=== PATIENT | female | born 2000 | race Caucasian/White ===

== ENCOUNTER 2018-11-03 13:59 | Emergency (ER) | payer OTHER ==
[~2018-11-03] VITALS: Ht 170.2 cm; Wt 96.2 kg
[2018-11-03 14:03] VITALS: Ht 170.2 cm; Wt 96.2 kg
[2018-11-03 15:45] VITALS: BP 134/69
== END 2018-11-03 15:46 | disposition home or self-care (01) ==
LOC: ED 13:59
DX: S09.8XXA Other specified injuries of head, initial encounter (principal); J45.909 Unspecified asthma, uncomplicated; W22.8XXA Striking against or struck by other objects, initial encounter; Y93.89 Activity, other specified; Y92.89 Other specified places as the place of occurrence of the external cause; Y99.8 Other external cause status